=== PATIENT | male | born 1995 | race Caucasian/White ===

== ENCOUNTER → 2016-06-13 | Outpatient (CLI) | payer OTHER ==
[~2016-06-13] MED LIST: AMOXICILLIN 8751 TAB PO; NO HOME MEDICATIONS; PREDNISONE20 MG PO; SUDAFED 12 HOU120 MG PO; TYLENOL 325MG325 MG PO; ZYRTEC5 MG PO
== END ==
LOC: BHSO 11:06
DX: F31.9 Bipolar disorder, unspecified (principal); F41.0 Panic disorder [episodic paroxysmal anxiety]; F41.9 Anxiety disorder, unspecified; F19.10 Other psychoactive substance abuse, uncomplicated
CPT/HCPCS: 90791-AI

== ENCOUNTER 2016-10-24 15:44 | Emergency (ER) | payer OTHER ==
[~2016-10-24] VITALS: Ht 185.4 cm; Wt 79.5 kg
[2016-10-24 15:49] VITALS: TEMP 97.9
[2016-10-24] MEDS ORDERED: AMOXICILLIN 8751 TAB PO (16:53)
[2016-10-24 17:40] VITALS: BP 133/76; PULSE 88
== END 2016-10-24 17:41 | disposition home or self-care (01) ==
LOC: COL.ER 15:44
DX: G43.909 Migraine, unspecified, not intractable, without status migrainosus (principal); J32.9 Chronic sinusitis, unspecified
CPT/HCPCS: J1200; J1885; J2765; J7030

== ENCOUNTER 2017-07-02 11:05 | Emergency (ER) | payer OTHER ==
[~2017-07-02] VITALS: Ht 185.4 cm; Wt 84.1 kg
[2017-07-02 11:36] VITALS: TEMP 98.7
[2017-07-02 11:38] LABS: COLLECTION METHOD CLEAN CATCH
[2017-07-02 11:48] LABS: MUCOUS Present /lpf; PH 6 (5-8); SQUAMOUS EPITHELIAL 0-2 /hpf; URINE APPEARANCE Clear; URINE BACTERIA None Seen /hpf; URINE BILIRUBIN Negative (NEGATIVE); URINE BLOOD Negative (NEGATIVE); URINE COLOR Yellow; URINE GLUCOSE Negative (NEGATIVE); URINE KETONE Negative (NEGATIVE); URINE LEUKOCYTE ESTERASE Negative (NEGATIVE); URINE NITRATE Negative (NEGATIVE); URINE PROTEIN(semi-quant) Negative (NEGATIVE); URINE RBC 0-2 /hpf; URINE UROBILINOGEN Negative (NEGATIVE)
[2017-07-02 11:49] LABS: BASO % 0.6 % (0.0-2.0); EOS # 0.1 (0.0-0.7); EOS % 2.7 % (0-4.0); GRAN # 2.5 (1.4-6.5); GRAN % 47.7 % (42.2-75.2); HEMATOCRIT 40.1 % (42.0-52.0); HEMOGLOBIN 14.1 g/dl (13.5-18.0); LYMPH % 38.8 % (20.0-51.0); MEAN CELL VOLUME 87 fl (80.0-100.0); MEAN CORPUSCULAR HEMOGLOBIN 31 pg (27.0-31.0); MEAN CORPUSCULAR HGB CONC 35 g/dl (33.0-37.0); MEAN PLATELET VOLUME 8.9 fl (7.4-10.4); MONO # 0.5 (0.1-0.6); MONO % 9.8 % (1.7-9.3); PLATELET COUNT 261 K/mm3 (130-400); RED BLOOD COUNT 4.61 M/mm3 (4.20-5.60); REDCELL DISTRIBUTION WIDTH-CV 12.5 % (11.5-14.5)
[2017-07-02 12:00] LABS: ALANINE AMINOTRANSFERASE 33 U/L (21-72); ALBUMIN 4.5 gm/dL (3.5-5.0); ALCOHOL(ethanol),MEDICAL 58 mg/dL; ALKALINE PHOSPHATASE 59 U/L (50-136); ANION GAP 14 mmol/L (7-16); AST,SGOT 29 U/L (15-37); BILIRUBIN,TOTAL 0.5 mg/dL (0.0-1.0); BLOOD UREA NITROGEN 12 mg/dL (9-20); CALCIUM 9.3 mg/dL (8.4-10.2); CARBON DIOXIDE 26 mmol/L (22-30); CHLORIDE 105 mmol/L (98-107); CREATININE, serum 0.88 mg/dL (0.66-1.25); GLUCOSE 86 mg/dL (74-106); MAGNESIUM 2.1 mg/dL (1.6-2.3); PHOSPHOROUS 3.3 mg/dL (2.5-4.5); POTASSIUM 4.3 mmol/L (3.4-5.0); SODIUM 145 mmol/L (137-145); TOTAL PROTEIN 8.1 gm/dL (6.4-8.2)
[2017-07-02 12:04] LABS: TRICYCLIC ANTIDEPRESS URINE NEGATIVE
[2017-07-02 12:09] LABS: ACETAMINOPHEN < 10 ug/mL (10-30); SALICYLATE < 1.0 mg/dL
[2017-07-02 16:23] VITALS: BP 116/66; PULSE 67
== END 2017-07-02 16:24 | disposition home or self-care (01) ==
LOC: COL.ER 11:05
PROVIDERS: Emergency Medicine
DX: R45.851 Suicidal ideations (principal); F31.9 Bipolar disorder, unspecified; F43.10 Post-traumatic stress disorder, unspecified; F41.9 Anxiety disorder, unspecified; F17.210 Nicotine dependence, cigarettes, uncomplicated

== ENCOUNTER 2017-09-29 04:12 | Inpatient (IN) | payer OTHER ==
[~2017-09-29] VITALS: Ht 185.4 cm; Wt 84.1 kg
[2017-09-29] VITALS (275 sets, daily range): BP systolic 131–143; BP diastolic 76–89; PULSE 66–112; TEMP 97.6–98.6; O2SAT 65–100
[2017-09-29] MEDS ORDERED: ZYPREXA 5MG5 MG PO (04:16)
[2017-09-29] MEDS ORDERED: LAMICTAL CD5 MG PO (04:17)
[2017-09-29 04:29] LABS: COLLECTION METHOD CLEAN CATCH
[2017-09-29 04:31] LABS: BASO # 0.1 (0.0-0.2); BASO % 0.6 % (0.0-2.0); EOS % 0.5 % (0-4.0); GRAN # 5.4 (1.4-6.5); GRAN % 64.2 % (42.2-75.2); HEMATOCRIT 41.4 % (42.0-52.0); HEMOGLOBIN 14.7 g/dl (13.5-18.0); LYMPH # 2.2 (1.2-3.4); LYMPH % 25.8 % (20.0-51.0); MEAN CELL VOLUME 86 fl (80.0-100.0); MEAN CORPUSCULAR HEMOGLOBIN 31 pg (27.0-31.0); MEAN CORPUSCULAR HGB CONC 36 g/dl (33.0-37.0); MEAN PLATELET VOLUME 9.1 fl (7.4-10.4); MONO # 0.7 (0.1-0.6); MONO % 8.7 % (1.7-9.3); PLATELET COUNT 298 K/mm3 (130-400); RED BLOOD COUNT 4.79 M/mm3 (4.20-5.60); REDCELL DISTRIBUTION WIDTH-CV 12.1 % (11.5-14.5)
[2017-09-29 04:34] LABS: PH 6 (5-8); SQUAMOUS EPITHELIAL None Seen /hpf; URINE APPEARANCE Clear; URINE BACTERIA None Seen /hpf; URINE BILIRUBIN Negative (NEGATIVE); URINE BLOOD 1+ (NEGATIVE); URINE COLOR Colorless; URINE GLUCOSE Negative (NEGATIVE); URINE KETONE Negative (NEGATIVE); URINE LEUKOCYTE ESTERASE Negative (NEGATIVE); URINE NITRATE Negative (NEGATIVE); URINE PROTEIN(semi-quant) Negative (NEGATIVE); URINE RBC 0-2 /hpf; URINE UROBILINOGEN Negative (NEGATIVE)
[2017-09-29 04:40] LABS: ALANINE AMINOTRANSFERASE 43 U/L (21-72); ALBUMIN 4.9 gm/dL (3.5-5.0); ALCOHOL(ethanol),MEDICAL 166 mg/dL; ALKALINE PHOSPHATASE 50 U/L (50-136); ANION GAP 15 mmol/L (7-16); AST,SGOT 49 U/L (15-37); BILIRUBIN,TOTAL 0.3 mg/dL (0.0-1.0); BLOOD UREA NITROGEN 10 mg/dL (9-20); CARBON DIOXIDE 26 mmol/L (22-30); CHLORIDE 105 mmol/L (98-107); GLUCOSE 142 mg/dL (74-106); POTASSIUM 3.3 mmol/L (3.4-5.0); SODIUM 147 mmol/L (137-145); TOTAL PROTEIN 8.1 gm/dL (6.4-8.2)
[2017-09-29 04:44] LABS: TRICYCLIC ANTIDEPRESS URINE NEGATIVE
[2017-09-29 05:04] LABS: ACETAMINOPHEN < 10 ug/mL (10-30); SALICYLATE < 1.0 mg/dL
[2017-09-29] MEDS ORDERED: LAMICTAL 25MG T25 MG PO (11:03)
[2017-09-29] MEDS ORDERED: ATARAX 25MG25 MG/TAB PO (11:05)
[2017-09-29] MEDS ORDERED: MINIPRESS2 MG PO (11:05)
[2017-09-30] VITALS (135 sets, daily range): BP systolic 120–134; BP diastolic 57–86; PULSE 68–88; TEMP 97.8–98; O2SAT 75–100
[2017-09-30 04:22] LABS: ALBUMIN 4.3 gm/dL (3.5-5.0); BILIRUBIN,TOTAL 0.8 mg/dL (0.0-1.0); CALCIUM 9.2 mg/dL (8.4-10.2); CREATININE, serum 0.91 mg/dL (0.66-1.25); POTASSIUM 4.1 mmol/L (3.4-5.0); TOTAL PROTEIN 7.2 gm/dL (6.4-8.2)
[2017-09-30] MEDS ORDERED: LAMICTAL 25MG T25 MG PO (11:01)
[2017-09-30] MEDS ORDERED: ZYPREXA 5MG5 MG PO (11:02)
== END 2017-09-30 12:24 | disposition home or self-care (01) | DRG 918 ==
LOC: COL.ER 04:12 → ICU 06:15
PROVIDERS: Emergency Medicine; Internal Medicine
DX: T40.4X2A Poisoning by other synthetic narcotics, intentional self-harm, initial encounter (principal); F10.129 Alcohol abuse with intoxication, unspecified; Y90.6 Blood alcohol level of 120-199 mg/100 ml; F31.9 Bipolar disorder, unspecified; F41.8 Other specified anxiety disorders; F60.3 Borderline personality disorder; F17.210 Nicotine dependence, cigarettes, uncomplicated; J45.909 Unspecified asthma, uncomplicated
CPT/HCPCS: 99223-AI; 99239; J1650; J2405; J3411; J7030

== ENCOUNTER 2018-08-14 04:59 | Emergency (ER) | payer OTHER ==
[~2018-08-14] VITALS: Ht 182.9 cm; Wt 77.3 kg
[~2018-08-14 04:59] MED LIST changes: +ATARAX 25MG25 MG/TAB PO; +LAMICTAL 25MG T25 MG PO; +LAMICTAL CD5 MG PO; +MINIPRESS2 MG PO; +ZYPREXA 5MG5 MG PO
[2018-08-14 05:07] VITALS: TEMP 98
[2018-08-14] MEDS ORDERED: PROZAC40 MG PO (05:10)
[2018-08-14] MEDS ORDERED: DESYREL 50MG50 MG PO (05:10)
[2018-08-14 05:31] LABS: BASO % 0.5 % (0.0-2.0); EOS # 0.3 (0.0-0.7); EOS % 3.3 % (0-4.0); GRAN # 3.6 (1.4-6.5); GRAN % 44.3 % (42.2-75.2); HEMATOCRIT 39.4 % (42.0-52.0); HEMOGLOBIN 13.8 g/dl (13.5-18.0); LYMPH % 37.8 % (20.0-51.0); MEAN CELL VOLUME 88 fl (80.0-100.0); MEAN CORPUSCULAR HEMOGLOBIN 31 pg (27.0-31.0); MEAN CORPUSCULAR HGB CONC 35 g/dl (33.0-37.0); MEAN PLATELET VOLUME 8.9 fl (7.4-10.4); MONO # 1.1 (0.1-0.6); PLATELET COUNT 246 K/mm3 (130-400); RED BLOOD COUNT 4.47 M/mm3 (4.20-5.60)
[2018-08-14 05:41] LABS: ACETAMINOPHEN < 10 ug/mL (10-30); ALANINE AMINOTRANSFERASE 28 U/L (21-72); ALBUMIN 4.1 gm/dL (3.5-5.0); ALCOHOL(ethanol),MEDICAL 186 mg/dL; ALKALINE PHOSPHATASE 67 U/L (50-136); ANION GAP 15 mmol/L (7-16); AST,SGOT 42 U/L (15-37); BILIRUBIN,TOTAL 0.2 mg/dL (0.0-1.0); BLOOD UREA NITROGEN 15 mg/dL (9-20); CALCIUM 9.1 mg/dL (8.4-10.2); CARBON DIOXIDE 20 mmol/L (22-30); CHLORIDE 107 mmol/L (98-107); CREATININE, serum 0.88 (0.66-1.25); GLUCOSE 124 mg/dL (74-106); POTASSIUM 3.7 mmol/L (3.4-5.0); SALICYLATE < 1.0 mg/dL; SODIUM 143 mmol/L (137-145); TOTAL PROTEIN 6.9 gm/dL (6.4-8.2)
[2018-08-14 12:49] LABS: COLLECTION METHOD CLEAN CATCH
[2018-08-14 13:10] LABS: MUCOUS Present /lpf; PH 5 (5-8); SQUAMOUS EPITHELIAL 0-2 /hpf; URINE APPEARANCE Clear; URINE BACTERIA None Seen /hpf; URINE BILIRUBIN Negative (NEGATIVE); URINE BLOOD 1+ (NEGATIVE); URINE COLOR Yellow; URINE GLUCOSE Negative (NEGATIVE); URINE KETONE Trace (NEGATIVE); URINE LEUKOCYTE ESTERASE Negative (NEGATIVE); URINE NITRATE Negative (NEGATIVE); URINE PROTEIN(semi-quant) Negative (NEGATIVE); URINE RBC 0-2 /hpf; URINE UROBILINOGEN Negative (NEGATIVE)
[2018-08-14 13:14] LABS: TRICYCLIC ANTIDEPRESS URINE NEGATIVE
[2018-08-14 14:00] VITALS: BP 112/72; PULSE 69
[2018-08-14] MEDS ORDERED: CEPHALEXIN500 M1 PO (15:26)
== END 2018-08-14 16:00 ==
LOC: COL.ER 04:59
PROVIDERS: Emergency Medicine
DX: S46.222A Laceration of muscle, fascia and tendon of other parts of biceps, left arm, initial encounter (principal); F31.9 Bipolar disorder, unspecified; X78.1XXA Intentional self-harm by knife, initial encounter
CPT/HCPCS: J0690; J2060; Q4021

== ENCOUNTER 2020-04-06 02:48 | Emergency (ER) | payer OTHER ==
[~2020-04-06] VITALS: Ht 182.9 cm; Wt 79.5 kg
[~2020-04-06 02:48] MED LIST changes: +CEPHALEXIN500 M1 PO; +COGENTIN 1MG1 MG/TAB PO; +DESYREL 50MG50 MG PO; +DOXYCYCLINE 10100 MG PO; +PROZAC40 MG PO
[2020-04-06 02:51] VITALS: TEMP 97.5
[2020-04-06 03:52] LABS: BASO % 0.3 % (0.0-2.0); EOS # 0.1 (0.0-0.7); EOS % 0.4 % (0-4.0); GRAN # 7.9 (1.4-6.5); GRAN % 69.5 % (42.2-75.2); HEMOGLOBIN 13.8 g/dl (13.5-18.0); LYMPH # 2.5 (1.2-3.4); LYMPH % 22.2 % (20.0-51.0); MEAN CELL VOLUME 88 fl (80.0-100.0); MEAN CORPUSCULAR HEMOGLOBIN 31 pg (27.0-31.0); MEAN CORPUSCULAR HGB CONC 35 g/dl (33.0-37.0); MEAN PLATELET VOLUME 9.2 fl (7.4-10.4); MONO # 0.8 (0.1-0.6); MONO % 7.3 % (1.7-9.3); PLATELET COUNT 267 K/mm3 (130-400); RED BLOOD COUNT 4.53 M/mm3 (4.20-5.60); REDCELL DISTRIBUTION WIDTH-CV 12.3 % (11.5-14.5)
[2020-04-06 04:05] LABS: ALANINE AMINOTRANSFERASE 31 U/L (4-49); ALBUMIN 4.8 gm/dL (3.5-5.0); ALCOHOL(ethanol),MEDICAL 76 mg/dL; ALKALINE PHOSPHATASE 50 U/L (50-136); ANION GAP 13 mmol/L (7-16); AST,SGOT 37 U/L (15-37); BILIRUBIN,TOTAL 0.2 mg/dL (0.0-1.0); BLOOD UREA NITROGEN 16 mg/dL (9-20); CARBON DIOXIDE 26 mmol/L (22-30); CHLORIDE 104 mmol/L (98-107); CREATININE, serum 0.94 (0.66-1.25); GLUCOSE 101 mg/dL (74-106); POTASSIUM 4.2 mmol/L (3.4-5.0); SODIUM 143 mmol/L (137-145); TOTAL PROTEIN 7.7 gm/dL (6.4-8.2)
[2020-04-06 04:09] LABS: C-REACTIVE PROTEIN < 0.5 mg/dL (0.0-0.9)
[2020-04-06 04:19] LABS: PROLACTIN 11.6 ng/mL (3.7-17.9)
[2020-04-06 05:20] VITALS: BP 112/62; PULSE 91
== END 2020-04-06 05:20 | disposition home or self-care (01) ==
LOC: COL.ER 02:48
PROVIDERS: Emergency Medicine
DX: R41.3 Other amnesia (principal); F17.210 Nicotine dependence, cigarettes, uncomplicated
CPT/HCPCS: J7030

== ENCOUNTER 2021-09-22 00:21 | Emergency (ER) | payer OTHER ==
[~2021-09-22] VITALS: Ht 185.4 cm; Wt 81.8 kg
[2021-09-22 00:49] VITALS: TEMP 97.9
[2021-09-22 01:25] LABS: BASO # 0.1 K/mm3 (0.0-0.2); BASO % 0.7 % (0.0-2.0); EOS # 0.1 K/mm3 (0.0-0.7); EOS % 1.3 % (0.0-4.0); GRAN # 6.5 K/mm3 (1.4-6.5); GRAN % 67.5 % (42.2-75.2); HEMATOCRIT 43.5 % (42.0-52.0); HEMOGLOBIN 15.8 g/dl (13.5-18.0); LYMPH # 2.2 K/mm3 (1.2-3.4); LYMPH % 22.8 % (20.0-51.0); MEAN CELL VOLUME 84 fl (80.0-100.0); MEAN CORPUSCULAR HEMOGLOBIN 31 pg (27-31); MEAN CORPUSCULAR HGB CONC 36 g/dl (33.0-37.0); MONO # 0.7 K/mm3 (0.1-0.6); MONO % 7.5 % (1.7-9.3); PLATELET COUNT 297 K/mm3 (130-400); RED BLOOD COUNT 5.17 M/mm3 (4.20-5.60); REDCELL DISTRIBUTION WIDTH-CV 12.4 % (11.5-14.5)
[2021-09-22 01:44] LABS: ALANINE AMINOTRANSFERASE 24 U/L (0-55); ALBUMIN 4.9 gm/dL (3.5-5.0); ALCOHOL(ethanol),MEDICAL < 10 mg/dL (0-10); ALKALINE PHOSPHATASE 78 U/L (40-150); ANION GAP 14 mmol/L (7-16); AST,SGOT 26 U/L (5-34); BILIRUBIN,TOTAL 0.6 mg/dL (0.2-1.2); BLOOD UREA NITROGEN 11 mg/dL (9-21); CARBON DIOXIDE 22 mmol/L (22-29); CHLORIDE 102 mmol/L (98-107); CREATININE, serum 1.11 mg/dL (0.72-1.25); GLUCOSE 116 mg/dL (70-99); POTASSIUM 3.8 mmol/L (3.5-4.5); SODIUM 138 mmol/L (136-145); TOTAL PROTEIN 7.8 gm/dL (6.2-8.1)
[2021-09-22 02:26] LABS: TRICYCLIC ANTIDEPRESS URINE NEGATIVE
[2021-09-22 03:23] VITALS: BP 120/81; PULSE 84
== END 2021-09-22 03:15 | disposition home or self-care (01) ==
LOC: COL.ER 00:21
PROVIDERS: Physician Assistant
DX: F19.121 Other psychoactive substance abuse with intoxication delirium (principal); I10 Essential (primary) hypertension; Z28.310 Unvaccinated for COVID-19
CPT/HCPCS: J7030

== ENCOUNTER 2023-06-07 01:32 | Emergency (ER) | payer OTHER ==
[~2023-06-07] VITALS: Ht 182.9 cm; Wt 84.1 kg
[2023-06-07 02:06] LABS: COLLECTION METHOD CLEAN CATCH
[2023-06-07 02:11] LABS: BASO % 0.4 % (0.0-2.0); EOS # 0.1 K/mm3 (0.0-0.7); EOS % 0.9 % (0.0-4.0); GRAN # 5.7 K/mm3 (1.4-6.5); GRAN % 57.9 % (42.2-75.2); HEMOGLOBIN 16.3 g/dl (13.5-18.0); LYMPH # 2.8 K/mm3 (1.2-3.4); LYMPH % 28.7 % (20.0-51.0); MEAN CELL VOLUME 86 fl (80.0-100.0); MEAN CORPUSCULAR HEMOGLOBIN 31 pg (27-31); MEAN CORPUSCULAR HGB CONC 36 g/dl (33.0-37.0); MEAN PLATELET VOLUME 9.4 fl (7.4-10.4); MONO # 1.2 K/mm3 (0.1-0.6); MONO % 11.8 % (1.7-9.3); PLATELET COUNT 318 K/mm3 (130-400); RED BLOOD COUNT 5.26 M/mm3 (4.20-5.60); REDCELL DISTRIBUTION WIDTH-CV 13.1 % (11.5-14.5)
[2023-06-07 02:15] LABS: URINE APPEARANCE CLEAR (CLEAR/HAZY); URINE BLOOD NEGATIVE (NEGATIVE); URINE COLOR YELLOW (YELLOW); URINE GLUCOSE NEGATIVE (NEGATIVE); URINE KETONE NEGATIVE (NEGATIVE); URINE NITRATE NEGATIVE (NEGATIVE); URINE PROTEIN(semi-quant) 1+ (NEGATIVE); URINE UROBILINOGEN 0.2 E.U/dL (0.2-1.0)
[2023-06-07 02:31] LABS: ALANINE AMINOTRANSFERASE 21 U/L (0-55); ALBUMIN 4.6 g/dL (3.5-5.0); ALKALINE PHOSPHATASE 66 U/L (40-150); ANION GAP 13 mmol/L (7-16); AST,SGOT 17 U/L (5-34); BILIRUBIN,TOTAL 0.2 mg/dL (0.2-1.2); BLOOD UREA NITROGEN 12 mg/dL (9-21); CALCIUM 9.5 mg/dL (8.4-10.2); CHLORIDE 109 mEq/L (98-107); CREATININE, serum 1.12 mg/dL (0.72-1.25); GLUCOSE 114 mg/dL (70-99); POTASSIUM 3.9 mEq/L (3.5-4.5); SODIUM 141 mEq/L (136-145); TOTAL PROTEIN 7.5 g/dl (6.2-8.1)
[2023-06-07 02:34] LABS: MUCOUS PRESENT (NOT PRESENT); URINE BACTERIA RARE /hpf (NONE SEEN); URINE RBC 0-2 /hpf (0-2); URINE WBC 0-2 /hpf (0-2)
[2023-06-07 02:35] LABS: TRICYCLIC ANTIDEPRESS URINE NEGATIVE (NEGATIVE)
[2023-06-07 02:58] LABS: ALCOHOL(ethanol),MEDICAL 205 mg/dL (0-10)
[2023-06-07 02:59] LABS: SALICYLATE < 5.0 mg/dL (15.0-30.0)
[2023-06-07] MEDS ORDERED: LORazepam 1 MG TAB PO ONE (03:15)
[2023-06-07] MEDS ORDERED: Nicotine 14 MG DAILY PATCH TD ONE (03:15)
[2023-06-07 08:10] VITALS: TEMP 97.4
[2023-06-07] MEDS ORDERED: VYVANSE70 MG PO (08:12)
[2023-06-07] MEDS ORDERED: ADDERALL10 MG PO (08:13)
[2023-06-07] MEDS ORDERED: WELLBUTRIN XL150 MG PO (08:13)
[2023-06-07] MEDS ORDERED: ZYPREXA10 MG PO (08:14)
[2023-06-07 11:28] VITALS: BP 122/72; PULSE 91
== END 2023-06-07 11:28 | disposition home or self-care (01) ==
LOC: COL.ER 01:32
PROVIDERS: Emergency Medicine
DX: R45.851 Suicidal ideations (principal); F10.129 Alcohol abuse with intoxication, unspecified; F12.10 Cannabis abuse, uncomplicated; F15.10 Other stimulant abuse, uncomplicated; Z87.891 Personal history of nicotine dependence; Y90.7 Blood alcohol level of 200-239 mg/100 ml

== ENCOUNTER 2023-11-15 18:41 | Emergency (ER) | payer SELFPAY ==
[~2023-11-15] VITALS: Ht 182.9 cm; Wt 81.8 kg
[~2023-11-15 18:41] MED LIST changes: +ADDERALL10 MG PO; +VYVANSE70 MG PO; +WELLBUTRIN XL150 MG PO; +ZYPREXA10 MG PO
[2023-11-15 18:47] VITALS: TEMP 98
[2023-11-15] MEDS ORDERED: NS 1,000 ML IV ONE (19:15)
[2023-11-15] MEDS ORDERED: LORazepam 2 MG/ML 1 ML VIAL IV ONE (19:15)
[2023-11-15] MEDS ORDERED: Ondansetron 4 MG/2 ML VIAL IV ONE (19:15)
[2023-11-15] MEDS ORDERED: fentaNYL 50 MCG/ML 2 ML VIAL IV ONE ×2 (19:15→19:30)
[2023-11-15 19:26] LABS: BASO % 0.4 % (0.0-2.0); EOS # 0.3 K/mm3 (0.0-0.7); EOS % 3.7 % (0.0-4.0); GRAN # 3.5 K/mm3 (1.4-6.5); GRAN % 37.5 % (42.2-75.2); HEMATOCRIT 42.5 % (42.0-52.0); HEMOGLOBIN 14.7 g/dl (13.5-18.0); LYMPH # 4.6 K/mm3 (1.2-3.4); LYMPH % 50.3 % (20.0-51.0); MEAN CELL VOLUME 89 fl (80.0-100.0); MEAN CORPUSCULAR HEMOGLOBIN 31 pg (27-31); MEAN CORPUSCULAR HGB CONC 35 g/dl (33.0-37.0); MEAN PLATELET VOLUME 9.5 fl (7.4-10.4); MONO # 0.7 K/mm3 (0.1-0.6); PLATELET COUNT 337 K/mm3 (130-400); REDCELL DISTRIBUTION WIDTH-CV 11.9 % (11.5-14.5)
[2023-11-15 19:44] LABS: ALBUMIN 4.8 g/dL (3.5-5.0); BILIRUBIN,TOTAL 0.3 mg/dL (0.2-1.2); CALCIUM 8.4 mg/dL (8.4-10.2); CREATININE, serum 1.35 mg/dL (0.72-1.25); POTASSIUM 3.5 mEq/L (3.5-4.5); TOTAL PROTEIN 7.4 g/dl (6.2-8.1)
[2023-11-15] MEDS ORDERED: Ketorolac 15 MG/ML VIAL IV ONE (19:45)
[2023-11-15 22:27] VITALS: BP 114/87; PULSE 64
== END 2023-11-15 22:28 | disposition home or self-care (01) ==
LOC: COL.ER 18:41
PROVIDERS: Family Medicine
DX: S42.451A Displaced fracture of lateral condyle of right humerus, initial encounter for closed fracture (principal); V92.09XA Drowning and submersion due to fall off unspecified watercraft, initial encounter; Y93.I9 Activity, other involving external motion
CPT/HCPCS: J1885; J2060; J2405; J2704; J3010; J7030